=== PATIENT | female | born 1955 | race Asian ===

== ENCOUNTER 2018-05-18 10:15 | Emergency (ER) | payer SELFPAY ==
[~2018-05-18] VITALS: Ht 160 cm; Wt 65.8 kg
[2018-05-18 10:14] VITALS: BP 139/80
[2018-05-18] MEDS ORDERED: Bacitracin Oint UD TOPIC ONE (10:30)
--- NOTE | 2018-05-18 10:36 | Emergency Room Report ---
History of Present Illness General Chief Complaint: Multiple Trauma/Fall Source: Patient Present Illness HPI 63-year-old female presents ED for evaluation. Patient brought in by EMS status post fall. Patient on mechanical trip and fall today. Patient fell forward hitting her head. Presenting with facial pain, right wrist pain and right hip and knee pain. Pain is throbbing, 7 out of 10, nonradiating. Unsure whether she lost consciousness. Denies nausea or vomiting. Denies chest pain or shortness of breath. No other aggravating relieving factors. Denies any other associated symptoms Allergies: Coded Allergies: No Known Allergies (Unverified , 05/18/18) Patient History Past Medical History: none Past Surgical History: none Pertinent Family History: none Social History: Denies: smoking, alcohol use, drug use Now: No Immunizations: UTD Reviewed Nursing Documentation: PMH: Agreed; PSxH: Agreed Nursing Documentation-PMH Past Medical History: No Stated History Review of Systems All Other Systems: negative except mentioned in HPI Physical Exam Vital Signs Date Time Temp Pulse Resp B/P (MAP) Pulse Ox O2 Delivery O2 Flow Rate FiO2 05/18/18 10:00 98.4 80 18 148/88 98 Room Air 98.4 Sp02 EP Interpretation: reviewed, normal General Appearance: no apparent distress, alert, GCS 15, non-toxic Head: normocephalic, other - R jaw pain Eyes: bilateral eye normal inspection, bilateral eye PERRL ENT: hearing grossly normal, normal pharynx, no angioedema, normal voice Neck: full range of motion, supple/symm/no masses Respiratory: chest non-tender, lungs clear, normal breath sounds, speaking full sentences Cardiovascular #1: regular rate, rhythm, no edema Cardiovascular #2: 2+ carotid (R), 2+ carotid (L), 2+ radial (R), 2+ radial (L) , 2+ dorsalis pedis (R), 2+ dorsalis pedis (L) Gastrointestinal: normal bowel sounds, non tender, soft, non-distended, no guarding, no rebound Rectal: deferred Genitourinary: normal inspection, no CVA tenderness Musculoskeletal: back normal, gait/station normal, normal range of motion, non- tender, tender - R wrist, R hip and knee pain Neurologic: alert, oriented x3, responsive, motor strength/tone normal, sensory intact, speech normal Psychiatric: judgement/insight normal, memory normal, mood/affect normal, no suicidal/homicidal ideation Reflexes: 3+ bicep (R), 3+ bicep (L), 3+ tricep (R), 3+ tricep (L), 3+ knee (R) , 3+ knee (L) Skin: normal color, no rash, warm/dry, well hydrated, abrasions - R knee Lymphatic: no adenopathy Medical Decision Making Diagnostic Impression: Primary Impression: Multiple injuries due to trauma Additional Impression: Fall Qualified Codes: W19.XXXA - Unspecified fall, initial encounter ER Course Hospital Course 63 yo F presents with facial/head pain, R sided pain s/p trip and fall Differential diagnoses include: Fracture, dislocation, sprain, contusion Clinical course Patient placed on stretcher. After initial history and physical, I ordered tdap and imaging studies CT head and facial bone unremarkable Xrays read shows no acute fracture/dislocation. Discussed findings with patient. Patient safe for discharge with close outpatient followup Diagnosis - multiple injuries due to trauma, fall Stable and discharged to home with prescription for Tylenol. apply ice, keep elevated. weight bear as tolerated. Followup with PMD. Return to ED if symptoms recur or worsen Other X-Ray Diagnostic Results Other X-Ray Diagnostic Results #1: X-Ray ordered: R wrist # of Views/Limited Vs Complete: 3 View Indication: Pain EP Interpretation: Yes Interpretation: no dislocation, no soft tissue swelling, no fractures Impression: No acute disease Electronically Signed by: Electronically signed by Franky Maguire MD Other X-Ray Diagnostic Results #2: X-Ray ordered: R knee # of Views/Limited Vs Complete: 3 View Indication: Pain EP Interpretation: Yes Interpretation: no dislocation, no soft tissue swelling, no fractures Impression: No acute disease Electronically Signed by: Electronically signed by Franky Maguire MD Other X-Ray Diagnostic Results #3: X-Ray ordered: R hip # of Views/Limited Vs Complete: 2 View Indication: Pain EP Interpretation: Yes Interpretation: no dislocation, no soft tissue swelling, no fractures Impression: No acute disease Electronically Signed by: Electronically signed by Franky Maguire MD CT/MRI/US Diagnostic Results CT/MRI/US Diagnostic Results #1: Imaging Test Ordered: CT Head Impression no acute process CT/MRI/US Diagnostic Results #2: Imaging Test Ordered: CT Facial Impression no acute process Last Vital Signs Date Time Temp Pulse Resp B/P (MAP) Pulse Ox O2 Delivery O2 Flow Rate FiO2 05/18/18 10:14 98.4 70 18 139/80 98 Room Air 98.4 Status: improved Disposition: HOME, SELF-CARE Condition: Stable Scripts Acetaminophen* (TYLENOL EXTRA STRENGTH*) 500 Mg Tablet 500 MG ORAL Q8H PRN for Prn Headache/Temp > 101, #30 TAB 0 Refills Prov: Franky Maguire MD 05/18/18 Franky Maguire MD May 18, 2018 10:36
--- NOTE | 2018-05-18 11:06 | Diagnostic Imaging Report ---
Indication: Reason For Exam: FALL Technique: Continuous helical CT scanning of the head was performed without intravenous contrast material. Axial and coronal 5 mm sections were generated. Radiation dose was minimized using automated exposure control Dose: Total Dose Length Product - DLP 1838.[address] Dose Index - CTDIvol(s) 70.38,28.19 mGy. Comparison: None FINDINGS: There is no acute intracranial hemorrhage, mass effect, midline shift or cortical edema. The ventricles, cisterns and sulci are within normal limits for age. Visualized mastoid air cells and paranasal sinuses are unremarkable. No focal lesions of the bony calvarium or soft tissues of the scalp are seen. IMPRESSION: No evidence of acute intracranial hemorrhage, mass effect or cortical edema. No calvarial fracture. The CT scanner at [facility] is accredited by the [employer] and the scans are performed using protocols designed to limit radiation exposure to as low as reasonably achievable to attain images of sufficient resolution adequate for diagnostic evaluation.
--- NOTE | 2018-05-18 11:12 | Diagnostic Imaging Report ---
Indication: Pain status post injury Technique: CT maxillofacial was performed utilizing automated exposure control without intravenous contrast material. Axial and coronal images were generated. CT dose (combined CT head and facial bones): Total DLP 1838 mGycm; CTDI vol 70.38, 28.19 mGy Comparison: None Findings: Streak artifact from dental hardware slightly limits evaluation. Within these limitations: No acute facial fracture is identified. The mandible, midface and nasal bones are intact. The orbits are unremarkable. Paranasal sinuses and mastoid air cells are clear. The nasal septum is midline. Visualized intracranial compartment is unremarkable. IMPRESSION: No acute facial bone fracture. The CT scanner at [facility] is accredited by the [employer] and the scans are performed using protocols designed to limit radiation exposure to as low as reasonably achievable to attain images of sufficient resolution adequate for diagnostic evaluation.
--- NOTE | 2018-05-18 11:23 | Diagnostic Imaging Report ---
Indication: Pain status post fall Technique: XRAY Knee 3v R Comparison: None Findings: There is no evidence of acute fracture or dislocation. There is very mild medial compartment joint space narrowing and some subchondral sclerosis. Small quadriceps tendon enthesophytes are noted. No suprapatellar joint effusion. No radiopaque foreign body. Impression: No acute fracture or dislocation.
--- NOTE | 2018-05-18 11:26 | Diagnostic Imaging Report ---
Indication: Pain status post fall Technique: XRAY Hip Routine 2v+ R Comparison: None Findings: Bone mineralization within normal limits. No acute fracture or dislocation identified. Symphysis pubis and right sacroiliac joint within normal limits. Imaged bowel gas unremarkable. No radiopaque foreign body seen. Impression: No acute fracture or dislocation.
--- NOTE | 2018-05-18 11:31 | Diagnostic Imaging Report ---
Indication: Pain status post fall Technique: XRAY Wrist Complete R Comparison: None Findings: No acute fracture or dislocation. Alignment and joint spaces preserved. No radiopaque foreign body. Impression: No acute fracture or dislocation.
[2018-05-18] MEDS ORDERED: TYLENOL EXTRA500 MG ORAL (11:35)
[2018-05-18] MEDS ORDERED: Tetanus/Diptheria/Pertussis Vaccine 0.5ml Syr IM ONE (11:45)
[2018-05-18 11:47] VITALS: BP 133/79
[2018-05-18 11:48] VITALS: BP 133/79
== END 2018-05-18 11:47 | disposition home or self-care (01) ==
LOC: EDBD 10:15 → EMR 10:56
DX: S09.90XA Unspecified injury of head, initial encounter (principal); M25.531 Pain in right wrist; M25.551 Pain in right hip; M25.561 Pain in right knee; W01.0XXA Fall on same level from slipping, tripping and stumbling without subsequent striking against object, initial encounter; Y93.9 Activity, unspecified; Y92.89 Other specified places as the place of occurrence of the external cause; Z23 Encounter for immunization
CPT/HCPCS: 70450; 70486; 90471; 90715; 99284